=== PATIENT | female | born 1965 | race African-American/Black ===

== ENCOUNTER 2017-04-19 00:52 | Emergency (ER) | payer MEDICAID ==
[~2017-04-19] VITALS: Ht 160 cm; Wt 81.6 kg
[2017-04-19 01:00] VITALS: BP 170/80
[2017-04-19] MEDS ORDERED: DiphenhydrAMINE 50mg/ml Inj IVP ONE (01:00)
--- NOTE | 2017-04-19 01:08 | Emergency Room Report ---
History of Present Illness General Chief Complaint: Allergic Reaction Source: Patient Present Illness HPI This is a 51-year-old female with no past medical history. She presents with allergic reaction. She said that she was at [facility] today and they were eating out great drink. She brought at home and put in the fridge. She woke up tonight feeling thirsty. She drank that juice and said that she felt short of breath and itching all over. She ran to the department and ring the irby. Said that she's itching and felt short of breath. EMS gave her epinephrine for allergic reaction. Denies any fever or chills. Denies any drug use. No Other complaint. Allergies: Coded Allergies: CIPROFLOXACIN (Verified Allergy, Unknown, 04/19/17) PENICILLINS (Verified Allergy, Unknown, 04/19/17) Patient History Past Medical History: see triage record, old chart reviewed Past Surgical History: none Pertinent Family History: none Social History: Denies: smoking Last Menstrual Period: n/a Now: No Immunizations: other Reviewed Nursing Documentation: PMH: Agreed, PSxH: Agreed Nursing Documentation-PMH Past Medical History: No Stated History Review of Systems Eye: Denies: eye pain, blurred vision ENT: Denies: ear pain, nose congestion, throat swelling Respiratory: Denies: cough, shortness of breath Cardiovascular: Denies: chest pain, palpitations Gastrointestinal: Denies: abdominal pain, diarrhea, nausea, vomiting Musculoskeletal: Denies: back pain, joint pain Skin: Denies: rash Neurological: Denies: headache, numbness Endocrine: Denies: increased thirst, increased urine Hematologic/Lymphatic: Denies: easy bruising All Other Systems: negative except mentioned in HPI Physical Exam Vital Signs Date Time Temp Pulse Resp B/P (MAP) Pulse Ox O2 Delivery O2 Flow Rate FiO2 04/19/17 00:46 97.9 100 16 170/80 98 Room Air vitals and high blood pressure Sp02 EP Interpretation: reviewed, normal General Appearance: well appearing, no apparent distress, alert Head: normocephalic, atraumatic Eyes: bilateral eye PERRL, bilateral eye EOMI ENT: hearing grossly normal, normal pharynx Neck: full range of motion, supple, no meningismus Respiratory: chest non-tender, lungs clear, normal breath sounds Cardiovascular #1: regular rate, rhythm, no murmur Gastrointestinal: normal bowel sounds, non tender, no mass, no organomegaly, no bruit, non-distended Musculoskeletal: back normal, gait/station normal, normal range of motion Neurologic: alert, oriented x3 Psychiatric: anxious - Scratching herself Skin: warm/dry Medical Decision Making Diagnostic Impression: Primary Impression: Cocaine abuse Additional Impression: Psychogenic formication ER Course Patient presents with allergic reaction. I suspect is more psychogenic formication from drug abuse. I see no physical signs of allergic reaction. She is calm after Benadryl. We'll discharge home. Last Vital Signs Date Time Temp Pulse Resp B/P (MAP) Pulse Ox O2 Delivery O2 Flow Rate FiO2 04/19/17 00:46 97.9 100 16 170/80 98 Room Air Status: improved Disposition: HOME, SELF-CARE Condition: Stable Scripts Diphenhydramine Hcl* (BENADRYL*) 25 Mg Capsule 50 MG ORAL Q6H Y for Itching, #30 CAP Prov: MARY KATE NUNES M.D. 04/19/17 Additional Instructions: Stop using drugs. Followup with your DrKey in 7 days. Return if worse. MARY KATE NUNES M.D. Apr 19, 2017 01:08
[2017-04-19] MEDS ORDERED: BENADRYL25 MG ORAL (01:56)
[2017-04-19 03:00] VITALS: BP 124/66
[2017-04-19 05:00] VITALS: BP 117/75
[2017-04-19 05:20] VITALS: BP 117/75
== END 2017-04-19 05:20 | disposition home or self-care (01) ==
LOC: EDBD 00:52 → EMR 01:30
DX: F14.10 Cocaine abuse, uncomplicated (principal); F45.8 Other somatoform disorders; Z88.0 Allergy status to penicillin; F41.9 Anxiety disorder, unspecified
CPT/HCPCS: 80307; 96374; 99284; J1200